=== PATIENT | female | born 1970 | race Caucasian/White ===

== ENCOUNTER 2024-10-31 06:49 | Outpatient (OUT) | payer OTHER, SELFPAY ==
--- OUTSIDE RECORDS SUMMARY | 2024-10-31 06:55 | XMS_ITS | Clinical Summary ---
Author Organization [facility] Address [address] [place], [place] [id number] Care Team Providers Care Personnel Clerk Name Role Phone Maame Mondragon RN, Marcia E MD Primary Care Provider [phone] Allergies No known active allergies Medications acetaminophen (TYLENOL) 500 mg tablet Take 1 tablet by mouth every 8 hours. Taper down and off as pain subsides 2 Active clindamycin (CLEOCIN) 300 mg capsuleIndicati ons:Prophylacti c antibiotic Take 2 tablets, by mouth, one hour prior to dental procedure 2 capsule 2 2 Active Active Problems Problem Noted Date Diagnosed Date Primary osteoarthritis of left knee 03/26/2021 Assessment & Plan (03/26/2021 12:10 PM EST): Assessment: Scheduled L TKA Family History Medical History Relation Comments No Known Problems Father No Known Problems Mother Relation Status Comments Father Alive Mother Alive Social History Tobacco Use Types Packs/Day Years Used Date Smoking Tobacco: Never Smokeless Tobacco: Never Alcohol Use Standard Drinks/Week Comments Not Currently 0 (1 standard drink = 0.6 oz pur e alcohol) Area Deprivation Index Answer Date Shimon rded National Score (1-100), lower number is lower ri sk Not on file 11/25/2020 State Score (1-10), lower number is lower risk N ot on file 11/25/2020 Data from: https://www.neighborhoodatlas.medicine.[facility].edu/. Last address used for calculation Not on file 11/25/2020 Comments No Sex and Gender Information Value Date Recorded Sex Assigned at Female 11/22/2020 10:18 PM EDT Legal Sex Female 12:18 PM EDT Gender Identity Female 11/22/2020 10:18 PM EDT Sexual Orientation Straight 11/22/2020 10 :18 PM EDT Last Filed Vital Signs Vital Sign Reading Time Taken Comments Blood Pressure 99/45 04/11/2021 7:49 AM EST Pulse 74 04/11/2021 7:49 AM EST Temperature 36.4 C (97.5 F) 04/11/2021 7:49 AM EST Respiratory Rate 17 04/11/2021 7:49 AM EST Oxygen Saturation 100% 04/11/2021 7:49 AM EST Inhaled Oxygen Concentration - - Weight 73.5 kg (162 lb) 04/10/2021 8:34 PM EST Height 162.6 cm (5' 4.02 ) 04/10/2021 8:34 PM ES T Body Mass Index 27.79 04/10/2021 8:34 PM EST Plan of Treatment Health Maintenance Due Date Last Done Comments Anxiety Screening 1986 Depression Screening 1986 HIV Screening 1986 Hepatitis C Screening 1986 DTaP,Tdap,Td Vaccine (1 - Tdap) 09/27/1987 Hepatitis B Vaccine (1 of 3 - 19+ 3-dose series) 09/27/1987 Cervical Cancer Screening 1989 CT Colonography 2013 Cologuard (FIT-DNA) 2013 Colonoscopy 2013 Colorectal Cancer Screening 2013 Fecal Occult Blood 2013 Lipid Screening 2013 Sigmoidoscopy 2013 Pneumococcal Vaccine: 50+ (1 of 1 - PCV) 2018 Shingrix Vaccine (1 of 2) 2018 Mammogram Screening 10/21/2020 10/22/2019 Diabetes Screening 04/11/2024 04/11/2021, 11/25/2020 Influenza Vaccine (#1) 2024 11/04/2015 Medical Devices Implanted Type Area Manual Writer Device Identifier Shelf Expiration Date Model / Serial / Lot Insert Triathlon 3 9mm Tibial Bearing Condylar Stabilize Sterile Knee - [id number] Implanted:Qty: 1 on 04/10/2021 at [facility] - Knee Left: Bone - Knee [employer] 02/26/2026 [id number] / / [id number] Component Triathlon 33mm Tritanium 9mm Patellar Metal Backed Symmetric - [id number] Implanted:Qty: 1 on 04/10/2021 at [facility] - Knee Left: Bone - Knee [employer] 09/02/2025 [id number] / / [id number] Component Triathlon 3 Pa Femoral Cruciate Retain Bead Knee Left - [id number] Implanted:Qty: 1 on 04/10/2021 at [facility] - Knee Left: Bone - Knee [employer] 12/03/2025 [id number] / / [id number] Baseplate Triathalon 3 Tritanium 44mm 67mm Tibial Sterile Latex Free - [id number] Implanted:Qty: 1 on 04/10/2021 at [facility] - Knee Left: Bone - Knee [employer] 08/21/2025 [id number] / / [id number] Procedures Procedure Name Priority Date/Time Associated Diagnosis Comments BASIC METABOLIC PANEL Routine 04/11/2021 6:33 AM EST from Last 3 Months or Most Recently Relevant to Health Maintenance Results * (ABNORMAL) BASIC METABOLIC PNL (04/11/2021 6:33 AM EST) [facility] Signature Glucose 111(H) 74 - 99 mg/dL 04/11/2021 7:15 AM EST [facility] Comment: The [place] Diabetes Association (ADA) provides guidance for cutoff values for fasting glucose and random glucose. The ADA defines fasting as no caloric intake for at least 8 hours. Fasting plasma glucose results between 100 to 125 mg/dL indicate increased risk for diabetes (prediabetes). Fasting plasma glucose results greater than or equal to 126 mg/dL meet the criteria for diagnosis of diabetes. In the absence of unequivocal hyperglycemia, results should be confirmed by repeat testing. In a patient with classic symptoms of hyperglycemia or hyperglycemic crisis, random plasma glucose results greater than or equal to 200 mg/dL meet the criteria for diagnosis of diabetes. Reference: Standards of Medical Care in Diabetes 2016, [place] Diabetes Association. Diabetes Care. 2016.39(Suppl 1). BUN 7 7 - 21 mg/dL 04/11/2021 7:15 AM EST [facility] Creatinine 0.63 0.58 - 0.96 mg/dL 04/11/2021 7:15 AM EST [facility] Sodium 139 136 - 144 mmol/L 04/11/2021 7:15 AM EST [facility] Potassium 3.7 3.7 - 5.1 mmol/L 04/11/2021 7:15 AM EST [facility] Chloride 104 97 - 105 mmol/L 04/11/2021 7:15 AM EST [facility] CO2 25 22 - 30 mmol/L 04/11/2021 7:15 AM EST [facility] Anion Gap 10 9 - 18 mmol/L 04/11/2021 7:15 AM EST [facility] Calcium, Total 8.7 8.5 - 10.2 mg/dL 04/11/2021 7:15 AM EST [facility] Estimated Glomerular Filtration Rate 107 >=60 mL/min/1. 73m 04/11/2021 7:15 AM EST [facility] Comment:Estimated Glomerular Filtration Rate (eGFR) is calculated using the 2020 CKD-EPI creatinine equation. This equation utilizes serum creatinine, sex, and age as parameters. The creatinine assay has traceable calibration to isotope dilution- mass spectrometry. Refer to KDIGO guidelines for clinical interpretation. In patients with unstable renal function, e.g. those with acute kidney injury, the eGFR may not accurately reflect actual GFR. Blood BLOOD SPECIMEN / Unknown Venipuncture / Unknown 04/11/2021 6:33 AM EST 04/11/2021 6:33 AM EST us Delbert Cruz MD LABORATORY Final Result [facility] [id number] [place] [address], from Last 3 Months or Most Recently Relevant to Health Maintenance Insurance [facility] Care Teams Personnel Clerk Relationship Specialty Start Date End Date Stephenie Rodas MD [address] [place] [address] PCP - General Family Medicine 03/26/21 Maame Mondragon, educational technology coordinator Coordinator 03/18/21
--- OUTSIDE RECORDS SUMMARY | 2024-10-31 06:55 | XMS_ITS | Patient Health Record ---
Author Organization [facility] es Address [address] [place] [address] Care Team Providers Care Gem Setter Name Role Phone Pooja Barrett Primary Care Provider [phone] Stephenie White Unavailable Unavailable Allergies No Known Allergies Reason For Referral Reason 02/15 pt. called [facility]. Attempted to reach. lvmsg requesting return call. closing referral. 02/02 *2nd attempt, lvmsg requesting return call. 01/23 attempt, lvmsg requesting return call. referral from Dr. Rodas for med mgnt of ADHD, currently taking Vyvanse. 02/14 *3rd attempt, pt. did attempt to call back, will wait to close referral. Diagnosis 1 Encounter for screen ing examination for mental health and behavioral disorders (Z13.30) Referral Organization [facility] Referring Provider First Name Stephenie Referring Provider Last Name Clark Referring Provider Speciality Family Med icine Referred Organization [facility] Referred Address [address] [place],[address], Referred Provider Specialty Medicatio ns Referral Priority Routine Medications Medication SIG (Take, Route, Frequency, Duration) Notes Start Date End Date Status Escitalopram Oxalate 5 MG 1 tablet Orally Once a day; Duration: 30 days 08/31/2024 Active Collagen 500-50-0.8 MG as directed Orally Active Vitron-C 65-125 MG 1 tablet Orally Once a day; Duration: 30 day(s) 08/31/2024 Active Citracal Maximum Act elaina Zinc Active Lisdexamfetamine Dimesylate 40 MG 1 capsule in the morning Oral Once a day; Duration: 30 days Medication not available in her area ([place]) . 10/18/2024 Active Magnesium Active cloNIDine HCl 0.1 MG 1 tablet Orally Once a day; Duration: 30 days Not-Taking Venlafaxine HCl ER 37.5 MG 1 capsule with food every other day Oral as directed; Duration: 30 days Not-Taking Social History Tobacco Use: Social History Observation Description Date Details (start date - stop date) Never Smoker NA - NA Depression Screening (PHQ-9): Question Answer Notes Little interest or pleasure in doing things Not at all Feeling down, depressed, or hopeless Not at all Trouble falling or staying asleep, or sleeping t oo much Not at all Feeling tired or having little energy Not at all Poor appetite or overeating Not at all Feeling bad about yourself-o r that you are a failure or have let yourself or your family down Not at all Trouble concentrating on thi ngs, such as reading the newspaper or watching television Not at all Moving or speaking so slowly that other people could have noticed. Or the opposite being so fidgety or restless that you have been moving around a lot more than usual Not at all Thoughts that you would be b ashok off , or of hurting yourself in some way Not at all Total Score 0 AUDIT-C (Standard) Question Answer Notes Did you have a drink containing alcohol in the p ast year? 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 [address] [place] [address] 04/16/2024 Pooja Slingwine [address] [place] [address] 06/21/2024 Pooja Slingwine ADHD (attention deficit hyperactivity disorder), inattentive type F90.0 [address] [place] [address] 08/27/2024 Pooja Slingwine [address] [place] [address] 09/25/2024 Pooja Slingwine Episodic mood disord er [address] [address] [place] [address] 05/14/2024 Pooja Slingwine ADHD (attention deficit hyperactivity disorder), inattentive type F90.[address] [address] 03/30/2024 Pooja Slingwine ADHD (attention deficit hyperactivity disorder), inattentive type F90.0 ; PTSD (post-traumatic stress disorder) F43.10 and Episodic mood disorder [address] [address] 04/23/2024 Pooja Slingwine ADHD (attention deficit hyperactivity disorder), inattentive type F90.0 ; PTSD (post-traumatic stress disorder) F43.10 and Episodic mood disorder [address] [address] 06/01/2024 Pooja Slingwine ADHD (attention deficit hyperactivity disorder), inattentive type F90.0 ; PTSD (post-traumatic stress disorder) F43.10 and Episodic mood disorder [address] [address] 08/31/2024 Pooja Slingwine ADHD (attention deficit hyperactivity disorder), inattentive type F90.0 ; PTSD (post-traumatic stress disorder) F43.10 and Episodic mood disorder F39 [facility] [address] [place] [address] 10/18/2024 Pooja Barrett ADHD (attention deficit hyperactivity disorder), inattentive type F90.0 ; PTSD (post-traumatic stress disorder) F43.10 and Episodic mood disorder F39 Assessments Encounter Date Diagnosis (ICD Code) Assessment Notes Treatment Notes Treatment Clinical Notes Section Notes 03/30/2024 ADHD (attention deficit hyperactivity disorder), inattentive type (ICD-10 - F90.0) . FDA approved stimulant medication for this age group. Discussed/Denies adverse effects from medication including HTN, tachycardia, insomnia, irritability, headache, or decreased appetite. . All relevant and serious adverse effects were discussed. Standard precautions and potential benefits were discussed. Patient/Guardian consented to begin medication/ continue treatment plan . Patient continues to meet criteria for attention deficit hyperactivity disorder. Pt does not meet criteria for bipolar disorder, major depressive disorder, or other persistent mood disorders. Will continue to monitor the patient for presentation of new symptoms or behaviors. . Continue current treatment; tolerating meds well, compliant; call for problems; questions answered satisfactorily, agreeable to treatment plan . GOALS: . Maintain medication regimen _Improve social and interpersonal functioning _Improve attention and or hyperactivity . . Crisis Intervention plan was discussed and agreed upon. Patient/Guardian will call 911 in case of emergency. Emergency contact information was provided to the patient/guardian. . OARRS reviewed . 06/21/2024 ADHD (attention deficit hyperactivity disorder), inattentive type (ICD-10 - F90.0) 09/25/2024 Episodic mood disorder (ICD-10 - F39) 03/30/2024 PTSD (post-traumatic stress disorder) (ICD-10 - F43.10) 10/18/2024 ADHD (attention deficit hyperactivity disorder), inattentive type (ICD-10 - F90.0) . FDA approved stimulant medication for this age group. Discussed/Denies adverse effects from medication including HTN, tachycardia, insomnia, irritability, headache, or decreased appetite. . All relevant and serious adverse effects were discussed. Standard precautions and potential benefits were discussed. Patient/Guardian consented to begin medication/ continue treatment plan . Patient continues to meet criteria for attention deficit hyperactivity disorder. Pt does not meet criteria for bipolar disorder, major depressive disorder, or other persistent mood disorders. Will continue to monitor the patient for presentation of new symptoms or behaviors. . Continue current treatment; tolerating meds well, compliant; call for problems; questions answered satisfactorily, agreeable to treatment plan . GOALS: . Maintain medication regimen _Improve social and interpersonal functioning _Improve attention and or hyperactivity . follow up 3 months . Crisis Intervention plan was discussed and agreed upon. Patient/Guardian will call 911 in case of emergency. Emergency contact information was provided to the patient/guardian. . OARRS reviewed . 08/31/2024 ADHD (attention deficit hyperactivity disorder), inattentive type (ICD-10 - F90.0) . FDA approved stimulant medication for this age group. Discussed/Denies adverse effects from medication including HTN, tachycardia, insomnia, irritability, headache, or decreased appetite. . All relevant and serious adverse effects were discussed. Standard precautions and potential benefits were discussed. Patient/Guardian consented to begin medication/ continue treatment plan . Patient continues to meet criteria for attention deficit hyperactivity disorder. Pt does not meet criteria for bipolar disorder, major depressive disorder, or other persistent mood disorders. Will continue to monitor the patient for presentation of new symptoms or behaviors. . Continue current treatment; tolerating meds well, compliant; call for problems; questions answered satisfactorily, agreeable to treatment plan . GOALS: . Maintain medication regimen _Improve social and interpersonal functioning _Improve attention and or hyperactivity . follow up 3 months . Crisis Intervention plan was discussed and agreed upon. Patient/Guardian will call 911 in case of emergency. Emergency contact information was provided to the patient/guardian. . OARRS reviewed . . Informed consent obtained: YES, we discussed the diagnosis/diagnoses , the treatment options, treatment(s) recommended vs. no treatment. We discussed risks and benefits of treatment options, treatment recommendations vs. no treatment. . . Pt is to continue current treatment plan Has good tolerability and compliance with medication Call for problems All questions and concerns discussed . 05/14/2024 ADHD (attention deficit hyperactivity disorder), inattentive type (ICD-10 - F90.0) 04/23/2024 ADHD (attention deficit hyperactivity disorder), inattentive type (ICD-10 - F90.0) . FDA approved stimulant medication for this age group. Discussed/Denies adverse effects from medication including HTN, tachycardia, insomnia, irritability, headache, or decreased appetite. . All relevant and serious adverse effects were discussed. Standard precautions and potential benefits were discussed. Patient/Guardian consented to begin medication/ continue treatment plan . Patient continues to meet criteria for attention deficit hyperactivity disorder. Pt does not meet criteria for bipolar disorder, major depressive disorder, or other persistent mood disorders. Will continue to monitor the patient for presentation of new symptoms or behaviors. . Continue current treatment; tolerating meds well, compliant; call for problems; questions answered satisfactorily, agreeable to treatment plan . GOALS: . Maintain medication regimen _Improve social and interpersonal functioning _Improve attention and or hyperactivity . follow up 3 months . Crisis Intervention plan was discussed and agreed upon. Patient/Guardian will call 911 in case of emergency. Emergency contact information was provided to the patient/guardian. . OARRS reviewed . 06/01/2024 ADHD (attention deficit hyperactivity disorder), inattentive type (ICD-10 - F90.0) . FDA approved stimulant medication for this age group. Discussed/Denies adverse effects from medication including HTN, tachycardia, insomnia, irritability, headache, or decreased appetite. . All relevant and serious adverse effects were discussed. Standard precautions and potential benefits were discussed. Patient/Guardian consented to begin medication/ continue treatment plan . Patient continues to meet criteria for attention deficit hyperactivity disorder. Pt does not meet criteria for bipolar disorder, major depressive disorder, or other persistent mood disorders. Will continue to monitor the patient for presentation of new symptoms or behaviors. . Continue current treatment; tolerating meds well, compliant; call for problems; questions answered satisfactorily, agreeable to treatment plan . GOALS: . Maintain medication regimen _Improve social and interpersonal functioning _Improve attention and or hyperactivity . follow up 3 months . Crisis Intervention plan was discussed and agreed upon. Patient/Guardian will call 911 in case of emergency. Emergency contact information was provided to the patient/guardian. . OARRS reviewed . . Informed consent obtained: YES, we discussed the diagnosis/diagnoses , the treatment options, treatment(s) recommended vs. no treatment. We discussed risks and benefits of treatment options, treatment recommendations vs. no treatment. . . Pt is to continue current treatment plan Has good tolerability and compliance with medication Call for problems All questions and concerns discussed . 06/01/2024 PTSD (post-traumatic stress disorder) (ICD-10 - F43.10) 04/23/2024 PTSD (post-traumatic stress disorder) (ICD-10 - F43.10) 08/31/2024 PTSD (post-traumatic stress disorder) (ICD-10 - F43.10) 03/30/2024 Episodic mood disorder (ICD-10 - F39) Educated on antidepressant. Made aware of Black Box Warning that it can increase suicidal thoughts, especially in minors. If this happens go to the ER. Make the office aware or go to the ER, if you experience seizures or an increase in activity and irritability. Made aware to not abruptly stop medication. Medication can cause headache and nausea. . Denies suicidal or homicidal ideation or plan. No morbid thoughts. Interpersonal issues discussed. Support provided Insight oriented/ Behavior modifying/ Supportive therapy clonidine: Encouraged to call office or report to the if the patient experiences dizziness or lightheadedness . 10/18/2024 PTSD (post-traumatic stress disorder) (ICD-10 - F43.10) 10/18/2024 Episodic mood disorder (ICD-10 - F39) Educated on antidepressant. Made aware of Black Box Warning that it can increase suicidal thoughts, especially in minors. If this happens go to the ER. Make the office aware or go to the ER, if you experience seizures or an increase in activity and irritability. Made aware to not abruptly stop medication. Medication can cause headache and nausea. . Denies suicidal or homicidal ideation or plan. No morbid thoughts. Interpersonal issues discussed. Support provided Insight oriented/ Behavior modifying/ Supportive therapy . Informed consent obtained: YES, we discussed the diagnosis/diagnoses , the treatment options, treatment(s) recommended vs. no treatment. We discussed risks and benefits of treatment options, treatment recommendations vs. no treatment. . . . Pt is to continue current treatment plan Has good tolerability and compliance with medication Call for problems All questions and concerns discussed . 08/31/2024 Episodic mood disorder (ICD-10 - F39) Educated on antidepressant. Made aware of Black Box Warning that it can increase suicidal thoughts, especially in minors. If this happens go to the ER. Make the office aware or go to the ER, if you experience seizures or an increase in activity and irritability. Made aware to not abruptly stop medication. Medication can cause headache and nausea. . Denies suicidal or homicidal ideation or plan. No morbid thoughts. Interpersonal issues discussed. Support provided Insight oriented/ Behavior modifying/ Supportive therapy . Informed consent obtained: YES, we discussed the diagnosis/diagnoses , the treatment options, treatment(s) recommended vs. no treatment. We discussed risks and benefits of treatment options, treatment recommendations vs. no treatment. . . . Pt is to continue current treatment plan Has good tolerability and compliance with medication Call for problems All questions and concerns discussed . 04/23/2024 Episodic mood disorder (ICD-10 - F39) clonidine: Encouraged to call office or report to the if the patient experiences dizziness or lightheadedness Educated on antidepressant. Made aware of Black Box Warning that it can increase suicidal thoughts, especially in minors. If this happens go to the ER. Make the office aware or go to the ER, if you experience seizures or an increase in activity and irritability. Made aware to not abruptly stop medication. Medication can cause headache and nausea. . Denies suicidal or homicidal ideation or plan. No morbid thoughts. Interpersonal issues discussed. Support provided Insight oriented/ Behavior modifying/ Supportive therapy . Informed consent obtained: YES, we discussed the diagnosis/diagnoses , the treatment options, treatment(s) recommended vs. no treatment. We discussed risks and benefits of treatment options, treatment recommendations vs. no treatment. . . . Pt is to continue current treatment plan Has good tolerability and compliance with medication Call for problems All questions and concerns discussed . 06/01/2024 Episodic mood disorder (ICD-10 - F39) Plan Of Treatment Next Appt Details Provider Name:Pooja Peres edmond, 12/19/2024 04:30:00 PM, [address] [place] [address], [phone], Insurance Providers Payer Name Payer Address Payer Phone Subscriber Number Group Number Insured Name Patient Relationship to Insured Coverage Start Date Coverage End Date [facility] [address] [place] [address] [id number] TREVOR FRANCO Self - patient is the insured 4 Medical (General) History Surgical History Surgery Date(Month/Year) section polyp removal D&C L knee surgery Hospitalization History Reason Date(Month/Year) see surgery above
--- OUTSIDE RECORDS SUMMARY | 2024-10-31 06:55 | XMS_ITS | Encounter Summary ---
Author Organization [facility] Address [facility] [place] [address] Care Team Providers Care Yard Coordinator Name Role Phone Sophia Gonsalves RN Unavailable Maame Mondragon RN Unavailable UnavailStephenie Costa MD Primary Care Provider [phone] Source Comments In the event this information is protected by the Federal Confidentiality of Alcohol and Drug AbusePatient Records regulations: The Federal rules restrict any use of the information to criminally investigate or prosecute any alcohol or drug abuse patient.[facility] Encounter Details Date Type Department Care Team (Late st Contact Info) Description 06/02/2021 Get Medical Advice Orthopaedics [address] [facility] [address] [place] [address] Halina Ness PA-C [address] [place] [address] Work Release Social History Tobacco Use Types Packs/Day Years [...] N ot on file 11/25/2020 Data from: https://[email or web address].medicine.[email or web address]/. Last address used for calculation Not on file 11/25/2020 Comments No Sex and Gender Information Value Date Recorded Sex Assigned at Female 11/22/2020 10:18 PM EDT Legal Sex Female 12:18 PM EDT Gender Identity Female 11/22/2020 10:18 PM EDT Sexual Orientation Straight 11/22/2020 10 :18 PM EDT documented as of this encounter Functional Status * Are you deaf or do you have serious difficulty hearing? Answer Date of Assessment Author No 04/11/2021 12:36 PM Marion Mccormack RN * Are you blind or do you have serious difficulty seeing, even when wearing glasses? Answer Date of Assessment Author No 04/11/2021 12:36 PM Marion Mccormack RN * Do you have serious difficulty walking or climbing stairs? Answer Date of Assessment Author No 04/11/2021 12:36 PM Marion Mccormack RN * Do you have difficulty dressing or bathing? Answer Date of Assessment Author No 04/11/2021 12:36 PM Marion Mccormack RN * Because of a physical, mental, or emotional condition, do you have difficulty doing errands alone such as visiting a doctor's office or shopping? Answer Date of Assessment Author No 04/11/2021 12:36 PM Marion Mccormack RN documented as of this encounter Mental Status * Because of a physical, mental, or emotional condition, do you have serious difficulty concentrating, remembering, or making decisions? Answer Entry Date Author No 04/11/2021 12:36 PM Marion Mccormack RN documented in this encounter Plan of Treatment Not on file documented as of this encounter Visit Diagnoses Not on filedocumented in this encounter Care Teams Yard Coordinator Relationship Specialty Start Date End Date Stephenie Rodas MD [address] [place] [id number] PCP - General Family Medicine 03/26/21 Sophia Gonsalves, RN [address] [place] [address] Specialty Pest Management Supervisor Orthopedics 04/10/21 Maame Mondragon, rigging slinger Coordinator 03/18/21 documented as of this encounter
--- OUTSIDE RECORDS SUMMARY | 2024-10-31 06:55 | XMS_ITS | Patient Health Record ---
Author Organization [facility] Address [address] [place] [address] Care Team Providers Care Hearing Aid Mechanic Name Role Phone Stephenie Rodas M.D. Primary Care Provider [facility] [phone] Allergies Allergen (clinical drug ingredient) Drug/Non Drug Allergy documented on EMR Reaction Allergy Type Onset Date Status No Known Drug Allergies (uncoded) Unknown Allergy Active Reason For Referral No Information Medications Medication SIG (Take, Route, Frequency, Duration) Notes Start Date End Date Status None Active Social History Tobacco Use: Social History Observation Description Date Details (start date - stop date) Never Smoker NA - NA Smoking History Question Answer Notes Smoking Status NonSmoker Problems Problem Type SNOMED Code ICD Code Onset Dates Problem Status W/U Status Risk Notes Problem [id number] Nondisplaced fracture of greater tuberosity of left humerus, subsequent encounter for fracture with routine healing (S42.255D) Active confirmed Problem [id number] Acute pain of left shoulder (M25.512) Active confirmed Plan Of Treatment No Information Insurance Providers Payer Name Payer Address Payer Phone Subscriber Number Group Number Insured Name Patient Relationship to Insured Coverage Start Date Coverage End Date [employer] [address] [place] [phone] [id number] TREVOR FRANCO Self - patient is the insured Medications Administered Medication Instructions Date of Administration Dosage Notes Euflexxa 04/02/2020 1 units Euflexxa 04/09/2020 1 units Euflexxa 04/16/2020 1 units Medical (General) History Medical History History ICD Code Do you have a pacemaker or A ICD(automatic internal cardiac defibrillator)? No Latex Allergy No Drug Allergies: No Bariatric Surgery: No Do you have a CPAP machine?: No Do you use the CPAP machine?: No Do you have any dental probl ems i.e. Broken, loose, or chipped teeth, absess, gum disease?: No Have you been seen by a dentist in the l ast year?: Yes Latex Allergy: No Drug Allergies: : No Bariatric Surgery:: No Have you been in close conta ct with someone who has had MRSA within the last year?: No Have you ever had or presently have MRSA ?: No Are you a healthcare worker?: No Surgical History Surgery Date(Month/Year) ectopic 1998 c-sections 2000, 2003
--- OUTSIDE RECORDS SUMMARY | 2024-10-31 06:55 | XMS_ITS | Encounter Summary ---
Author Organization [facility] Address [address] [place] [id number] Care Team Providers Care Administrative Assistant Office Manager Name Role Phone Maame Mondragon RN, Marcia E MD Primary Care Provider [phone] Source Comments In the event this information is protected by the Federal Confidentiality of Alcohol and Drug AbusePatient Records regulations: The Federal rules restrict any use of the information to criminally investigate or prosecute any alcohol or drug abuse patient.[facility] Encounter Details Date Type Department Care Team (Late st Contact Info) Description 08/07/2021 Get Medical Advice Orthopaedics [address] [facility] [address] [place] [address] Halina Ness PA-C [address] [place] [address] Pocket of fluid/cyst? Social History Tobacco Use Types Packs/Day Years [...] N ot on file 11/25/2020 Data from: https://www.neighborhoodatlas.medicine.[facility]/. Last address used for calculation Not on [...] on filedocumented in this encounter Care Teams Administrative Assistant Office Manager Relationship Specialty Start Date End Date Stephenie Rodas MD [address] [place] [id number] PCP - General Family Medicine 03/26/21 Kovacic, Maame, trench trimmer fine Coordinator 03/18/21 documented as of this encounter
--- OUTSIDE RECORDS SUMMARY | 2024-10-31 06:55 | XMS_ITS | Clinical Summary ---
Author Organization [facility] Address [address], [address] [place] [address] Care Team Providers Care Profile Saw Setup Operator Name Role Phone Stephenie Rodas MD Primary Care Provider [phone] Social History Tobacco Use Types Packs/Day Years Used Date Smoking Tobacco: Never Assessed Comments Unknown Sex and Gender Information Value Date Recorded Sex Assigned at Not on file Legal Sex Female 5:32 PM EST Gender Identity Not on file Sexual Orientation Not on file Plan of Treatment Health Maintenance Due Date Last Done Comments Depression Screen 1980 HIV screen 09/27/1983 Hepatitis C screen 1986 DTaP/Tdap/Td vaccine (1 - Tdap) 09/27/1987 Hepatitis B vaccine (1 of 3 - 19+ 3-dose series) 09/27/1987 Pap smear 1989 Cervical cancer screen 1998 HPV (without or with Pap) 1998 Breast cancer screen 2008 Lipids 2008 Colonoscopy 2013 Colorectal Cancer Screen 2013 FIT/FOBT: Average risk 2013 Fecal-DNA (Cologuard): Average risk 2013 Sigmoidoscopy/CT colonography 2013 Pneumococcal 50+ years Vacci ne (1 of 1 - PCV) 2018 Shingles vaccine (1 of 2) 2018 Flu vaccine (#1) 09/07/2024 COVID-19 Vaccine ( - 2023-2 5 season) 2024 Hepatitis A vaccine Aged Out No longe r eligible based on patient's age to complete this topic Hib vaccine Aged Out No longer eligi ble based on patient's age to complete this topic Meningococcal (ACWY) vaccine Aged Out No longer eligible based on patient's age to complete this topic Meningococcal B vaccine Aged Out No l onger eligible based on patient's age to complete this topic Polio vaccine Aged Out No longer elig ible based on patient's age to complete this topic Insurance [employer] Care Teams Profile Saw Setup Operator Relationship Specialty Start Date End Date Stephenie Rodas MD [address] [place] [address] PCP - General Family Medicine 05/27/22
--- OUTSIDE RECORDS SUMMARY | 2024-10-31 06:55 | XMS_ITS | Encounter Summary ---
Author Organization [facility] Address [address] [place] [address] Care Team Providers Care Sail Lay Out Worker Name Role Phone Maame Mondragon RN, Marcia E MD Primary Care Provider [phone] Source Comments In the event this information is protected by the Federal Confidentiality of Alcohol and Drug AbusePatient Records regulations: The Federal rules restrict any use of the information to criminally investigate or prosecute any alcohol or drug abuse patient.[facility] Encounter Details Date Type Department Care Team (Late st Contact Info) Description 08/25/2021 Patient Msg Orthopedics [address] [place], [place] [id number] Provider, [facility] Requested Forms Social History Tobacco Use Types Packs/Day Years [...] ot on file 11/25/2020 Data from: https://www.neighborhoodatlas.medicine.[facility].edu/. Last address used for calculation Not [...] on filedocumented in this encounter Care Teams Sail Lay Out Worker Relationship Specialty Start Date End Date Stephenie Rodas MD [address] [place] [address] PCP - General Family Medicine 03/26/21 Maame Mondragon RN Transitional Human Resources Intern 03/18/21 documented as of this encounter
--- OUTSIDE RECORDS SUMMARY | 2024-10-31 06:55 | XMS_ITS | Clinical Summary ---
Author Organization [facility] Address [id number] [address] [place] [address] Care Team Providers Care Terminal Operations Supervisor Name Role Phone Stephenie Rodas MD Primary Care Provider [phone] Allergies No known active allergies Medications iron,carbonyl-vi tamin C (VITRON-C) 65 mg iron- 125 mg tablet,delayed release (DR/EC) Take by mouth. Active cholecalciferol, vitD3,/vit K2 (VITAMIN D3-VITAMIN K2 ORAL) Take by mouth. Active Active Problems No known active problems Family History Medical History Relation Name Comments Breast cancer Paternal Grandmother rogerio [employer] E Relation Name Status Comments Father Alive Mother Alive Paternal Grandmother rogerio Social History Tobacco Use Types Packs/Day Years Used Date Smoking Tobacco: Never Smokeless Tobacco: Never Tobacco Cessation:Counseling Given: Not Answered Alcohol Use Standard Drinks/Week Comments Never 0 (1 standard drink = 0.6 oz pur e alcohol) Childcare Answer Date Recorded Childcare Unknown 07/19/2018 Employment Answer Date Recorded Employment Unknown 07/19/2018 Hunger Screening Answer Date Recorded Within the past 12 months we worried whether our food would run out before we got money to buy more. Never True 02/07/2022 Within the past 12 months th e food we bought just didn't last and we didn't have money to get more. Never True 02/07/2022 Purpose - Life Answer Date Recorded Purpose and direction in life Unknown Comments No Sex and Gender Information Value Date Recorded Sex Assigned at Not on file Legal Sex Female 11:49 AM EDT Gender Identity Not on file Sexual Orientation Not on file Last Filed Vital Signs Vital Sign Reading Time Taken Comments Blood Pressure 138/70 02/07/2022 12:45 PM EST Pulse 92 02/07/2022 12:45 PM EST Temperature 36.7 C (98.1 F) 02/07/2022 12:45 PM EST Respiratory Rate 16 02/07/2022 12:45 PM EST Oxygen Saturation 97% 02/07/2022 12:45 PM EST Inhaled Oxygen Concentration - - Weight 59 kg (130 lb) 11/05/2022 12:53 PM EDT Height 162.6 cm (5' 4 ) 11/05/2022 12:53 PM EDT Body Mass Index 22.31 11/05/2022 12:53 PM EDT Plan of Treatment Health Maintenance Due Date Last Done Comments Depression Screening 1980 Tobacco Screening 1980 DTaP,Tdap and Td Vaccines (1 - Tdap) 09/27/1987 Pap Smear 1989 Zoster (Shingles) Vaccine (1 of 2) 2018 Adult BMI Screening 11/06/2023 11/05/2022 Influenza Vaccine 10/08/2024 11/04/2015 Medical Devices Not on file Insurance [employer] Care Teams Terminal Operations Supervisor Relationship Specialty Start Date End Date Stephenie Rodas MD [address] [place] [id number] PCP - General 09/23/17
[2024-10-31 07:11] LABS: Hematocrit 40.9 % (36.0-48.0); Hemoglobin 13.4 g/dL (12.0-16.0); Immature Granulocytes Abs Auto 0.01 10^3/uL (0.00-0.03); Immature Granulocytes Pct Auto 0.3 % (0.0-0.5); Lymphocytes Absolute Auto 1.4 10^3/uL (1.2-3.8); Mean Corpuscular HGB Conc 32.8 g/dL (29.9-35.2); Mean Corpuscular Hemoglobin 29.5 pg (26.7-34.0); Mean Corpuscular Volume 89.9 fL (81.0-99.0); Platelet Count 217 10^3/uL (150-450); Red Blood Count 4.55 10^6/uL (4.20-5.40); White Blood Count 3.8 10^3/uL (4.0-11.0)
[2024-10-31 07:58] LABS: Alanine Aminotransferase 18 U/L (14-59); Albumin Globulin Ratio 1.0; Albumin Level 3.8 g/dL (3.4-5.0); Alkaline Phosphatase 67 U/L (46-116); Anion Gap 12.9; Aspartate Amino Transferase 20 U/L (15-37); Blood Urea Nitrogen 15.0 mg/dL (7.0-18.0); Calcium 9.0 mg/dL (8.5-10.1); Carbon Dioxide 30.3 mmol/L (21.0-32.0); Chloride 101 mmol/L (98-107); Cholesterol 244 mg/dL (<=200); Estimated GFR (African America >60 (>=60 mL/min/1.73m^2); Estimated GFR (Non-African Ame >60 (>=60 mL/min/1.73m^2); Globulin 3.9 g/dL; Glucose 78 mg/dL (74-106); HDL Cholesterol 73 mg/dL (40-60); Potassium 4.2 mmol/L (3.5-5.1); Sodium 140 mmol/L (136-145); Thyroid Stimulating Hormone 2.896 uIU/mL (0.358-3.740); Total Protein 7.7 g/dL (6.4-8.2); Triglycerides 55 mg/dL (<=150); VLDL CHOLESTEROL 11.0 mg/dL
== END 2024-10-31 06:50 | disposition home or self-care (01) ==
LOC: LAB 06:53
PROVIDERS: PCP Family Medicine
DX: Z00.00 Encounter for general adult medical examination without abnormal findings (principal)
CPT/HCPCS: 36415; 80053; 80061; 83036; 84443; 85025